=== PATIENT | male | born 1975 | race Caucasian/White ===

== ENCOUNTER 2024-04-04 13:55 | Emergency (ER) | payer OTHER, SELFPAY ==
[2024-04-04 14:01] VITALS: BP 145/75; PULSE 65; TEMP 36.6; O2SAT 98; BMI 25.1
--- NOTE | 2024-04-04 14:09 | ECG_ITS ---
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
--- NOTE | 2024-04-04 14:09 | CT_ITS ---
The [address] [address] Patient Name: LUMA LYON MRN: [id number] date: 1975 Sex: M Assigned Patient Location: ER Current Patient Location: ER Accession/Order Number: [id number] Exam Date: 04/04/2024 14:30 Report Date: 04/04/2024 15:14 At the request of: SUSAN CABRAL Procedure: CT head/brain wo con EXAM: CT head/brain wo con HISTORY: Fall COMPARISON: None. TECHNIQUE: Axial noncontrast CT imaging of the head was performed with coronal and sagittal reformats. This CT exam was performed using one or more of the following dose reduction techniques: Automated exposure control, adjustment of the MA and/or kV according to patient size, or use of iterative reconstruction technique. FINDINGS: Calvarium/skull base: No evidence of acute fracture or destructive lesion. Mastoids and middle ears demonstrate no substantial mucosal disease. Paranasal sinuses: No air fluid levels. Brain: No acute intracranial hemorrhage. No acute large vascular territory infarct. No mass lesion or mass effect. No hydrocephalus. CT/CT head/brain wo con IMPRESSION: No acute intracranial process. Electronically authenticated by: JOSE ELAINE Date: 04/04/2024 15:14
--- NOTE | 2024-04-04 14:09 | CT_ITS ---
The [address] [address] Patient Name: LUMA LYON MRN: [id number] date: 1975 Sex: M Assigned Patient Location: ER Current Patient Location: ER Accession/Order Number: [id number] Exam Date: 04/04/2024 14:30 Report Date: 04/04/2024 15:11 At the request of: SUSAN CABRAL Procedure: CT cervical spine wo con PROCEDURE: CT cervical spine wo con COMPARISON: None. HISTORY: Fall, left arm numbness TECHNIQUE: Axial, Coronal, and Sagittal CT images obtained without IV contrast. Dose reduction techniques were achieved by using automated exposure control and/or adjustment of mA and/or kV according to patient size and/or use of iterative reconstruction technique. FINDINGS: PARASPINAL AREA: Normal with no visible mass. DISCS: Moderate narrowing C5-C6 with endplate sclerosis. Right C5-C6 foraminal stenosis BONES: Normal alignment with no acute fracture or spondylolisthesis. Degenerative spondylosis and facet osteoarthropathy most significant C5-C6 with posterior osteophyte formation OTHER: Negative. CT/CT cervical spine wo con IMPRESSION: No acute traumatic fracture Moderate degenerative changes C5-C6 with right foraminal stenosis Electronically authenticated by: ENOC ODONNELL Date: 04/04/2024 15:11
--- NOTE | 2024-04-04 14:09 | XR_ITS ---
The [address] [address] Patient Name: LUMA LYON MRN: [id number] date: 1975 Sex: M Assigned Patient Location: ER Current Patient Location: ER Accession/Order Number: [id number] Exam Date: 04/04/2024 14:30 Report Date: 04/04/2024 15:02 At the request of: SUSAN CABRAL Procedure: XR elbow LT min 3V PROCEDURE: XR elbow LT min 3V COMPARISON: None. HISTORY: fall FINDINGS: BONES:No fracture, acute abnormality, or significant arthropathy. Minimal enthesopathic spurring of the olecranon process of the triceps insertion SOFT TISSUES:Negative. No visible soft tissue swelling. EFFUSION:None visible. OTHER: Negative. XR/XR elbow LT min 3V IMPRESSION: No acute fracture Electronically authenticated by: ENOC ODONNELL Date: 04/04/2024 15:02
--- NOTE | 2024-04-04 14:12 | CT_ITS ---
[address] [address] Patient Name: LUMA LYON MRN: [id number] date: 1975 Sex: M Assigned Patient Location: ER Current Patient Location: ER Accession/Order Number: [id number] Exam Date: 04/04/2024 14:30 Report Date: 04/04/2024 15:07 At the request of: SUSAN CABRAL Procedure: CT chest w con EXAMINATION: CT chest w con HISTORY: Fall, left chest pain COMPARISON: No relevant comparison available. TECHNIQUE: Multi-planar CT images were created with IV contrast. Axial, Coronal, and Sagittal images. Dose reduction techniques were achieved by using automated exposure control and/or adjustment of mA and/or kV according to patient size and/or use of iterative reconstruction technique. FINDINGS: LUNGS: Minimal bibasilar linear opacities likely representing atelectasis. No focal consolidation or pulmonary mass PLEURA: No mass, effusion, or pneumothorax. VASCULATURE: No abnormality. VERONICA: No mass or adenopathy. MEDIASTINUM: No mass or adenopathy. CARDIAC: No enlargement or pericardial effusion Coronary atherosclerosis: Mild AORTA: No aortic aneurysm or dissection. Minimal calcific atherosclerosis CHEST WALL: No mass or axillary adenopathy. BONES: No bone lesion or fracture. Exaggerated thoracic kyphosis with mild degenerative spondylosis LIMITED ABDOMEN: No suspicious findings. Limited images of the upper abdomen. OTHER: Negative. CT/CT chest w con IMPRESSION: No acute traumatic abnormality Electronically authenticated by: ENOC ODONNELL Date: 04/04/2024 15:07
--- NOTE | 2024-04-04 14:12 | ED.GENADUL1 ---
HPI HPI - General Adult General Chief complaint: Fall Stated complaint: UPPER EXTREMITY INJURY Time Seen by Provider: 04/04/24 13:57 Source: patient Mode of arrival: walk-in Limitations: no limitations History of Present Illness HPI narrative: Patient is a 49-year-old male who presents to the emergency department with complaint of left hand numbness and left chest wall pain after a fall off a roof 1 week ago. He states the symptoms have been present since he fell off the roof. He states he landed on his left side. He sustained abrasions to his left elbow. He complains of some continued pain at the left elbow. He states his left hand is numb and he is having difficulty using his left hand although he just came from work and was able to work today. He states he went to [facility] last night but was not happy with his care because they could not answer the question . When asked what the patient's expectations are, he states No one told me why my left hand is numb . He states he believes he had a chest x-ray last night at [facility] in the emergency department. He arrives ambulatory, holding a can of Pepsi in his right hand. He denies neck pain, back pain. No issues with the right upper extremity. Pain is in the left chest wall under the left nipple. Related Data Home Medications ?Medication ?Instructions ?Recorded ?Confirmed ondansetron HCl 4 mg tablet 4 mg PO Q8H 04/04/24 04/04/24 pantoprazole 40 mg tablet,delayed 40 mg PO DAILY 04/04/24 04/04/24 release Previous Rx's ?Medication ?Instructions ?Recorded methocarbamol 750 mg tablet 750 mg PO TID PRN pain #20 tabs 04/04/24 methylprednisolone 4 mg tablets in See Rx Instructions .Route 04/04/24 a dose pack (Medrol (Jesus)) .COMPLEX #21 ea Allergies Allergy/AdvReac Type Severity Reaction Status Date / Time acetaminophen Allergy Severe Hives Verified 04/04/24 14:00 [From Darvocet-N] bee venom protein (honey bee) Allergy Severe Hives Verified 04/04/24 14:00 propoxyphene Allergy Severe Hives Verified 04/04/24 14:00 [From Darvocet-N] Opioid HPI Opioid Management Most Recent Opioid Data: Last Pain Scale 8 04/04/24 14:35 Review of Systems ROS Constitutional Denies: fever or chills Eyes Denies: change in vision Cardiovascular Reports: chest pain Respiratory Denies: shortness of breath or cough Gastrointestinal Denies: abdominal pain, nausea or vomiting Musculoskeletal Reports: extremity pain; Denies: back pain or neck pain Integumentary/Breast Denies: rash Neurological Reports: numbness in extremities and weakness in extremities; Denies: headache or dizziness Hematologic/Lymphatic Denies: easy bruising or easy bleeding Exam Narrative Exam Narrative: Gen.: Awake, alert, in no distress Head: Normocephalic, atraumatic ENT: Moist mucous membranes, Cervical spine nontender Respiratory: No respiratory distress, lungs clear bilaterally; Minimal tenderness of the left anterior chest wall inferior to the nipple Cardio: Regular rate and rhythm Extremities: 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 Normal biceps tendon strength bilaterally in the upper extremities. Diffuse mild tenderness with abrasions that are healing to the left posterior elbow and olecranon. Patient is noted to be moving his extremities up above his head at the shoulders with no difficulty. No lower extremity injuries, well-healing abrasion to the left anterior knee. Psych: Normal mood and affect Neuro: No focal neuro deficit Skin: Warm, dry, intact Constitutional Vital Signs, click to edit/add: Last Vital Signs Temp 98 F 04/04/24 14:01 Pulse 65 04/04/24 14:01 Resp 20 04/04/24 14:01 BP 145/75 H 04/04/24 14:01 Pulse Ox 98 04/04/24 14:01 O2 Del Method Room Air 04/04/24 14:01 Course Vital Signs Vital signs: Vital Signs Temperature 98 F 04/04/24 14:01 Pulse Rate 65 04/04/24 14:01 Respiratory Rate 20 04/04/24 14:01 Blood Pressure 145/75 H 04/04/24 14:01 Pulse Oximetry 98 04/04/24 14:01 Oxygen Delivery Method Room Air 04/04/24 14:01 Temperature 98 F 04/04/24 14:01 Pulse Rate 65 04/04/24 14:01 Respiratory Rate 20 04/04/24 14:01 Blood Pressure 145/75 H 04/04/24 14:01 Pulse Oximetry 98 04/04/24 14:01 Oxygen Delivery Method Room Air 04/04/24 14:01 Medical Decision Making MDM Narrative Medical decision making narrative: I obtained records from [facility] from the patient's visit yesterday showing that he reported to the ER staff left chest wall pain radiating into the left arm associated with 3 days of cough and congestion. He received a cardiac workup and was discharged with medication for bronchitis. At no point in their ER documentation does it state that the patient reported a fall a week ago, left hand numbness or other associated injuries. CT of the brain, C-spine, chest and x-ray of the left elbow were obtained. Patient has a normal EKG, normal labs including troponin. CT of the cervical spine shows some moderate degenerative changes and C5/C6 foraminal stenosis. Patient is in no distress on reevaluation by attending physician. He was asked by nursing staff if he has been taking the medications that were prescribed to him at [facility] last night, patient states that he did not start any of the medications because he was not seen by a doctor. Records show that he was seen by a physician clinical services assistant. He states that he did not believe any of the workup that he received last night because he was not seen by a doctor. Patient was reevaluated by Dr. Abreu and given his results. He is discharged with a Medrol Dosepak and Robaxin. Follow-up with primary care provider for an MRI as indicated and return to the ER if symptoms change or worsen Medical Records Medical records reviewed: Yes I reviewed the patient's medical records Lab Data Lab results reviewed: Yes I reviewed the patient's lab results Labs: Lab Results 04/04/24 Range/Units 14:17 WBC 8.7 (4.0-11.0) 10^3/uL RBC 3.85 L (4.70-6.10) 10^6/uL Hgb 12.7 L (14.0-18.0) g/dL Hct 37.8 L (42.0-54.0) % MCV 98.2 H (80.0-94.0) fL MCH 33.0 (25.9-34.0) pg MCHC 33.6 (29.9-35.2) g/dL RDW 11.7 (11.0-15.0) % Plt Count 232 (150-450) 10^3/uL MPV 10.8 (9.5-13.5) fL Neut % (Auto) 64.8 (43.0-75.0) % Lymph % (Auto) 23.1 (20.5-60.0) % Harvey % (Auto) 7.0 (1.7-12.0) % Eos % (Auto) 4.0 (0.9-7.0) % Baso % (Auto) 0.8 (0.2-2.0) % Neut # (Auto) 5.6 (1.4-6.5) 10^3/uL Lymph # (Auto) 2.0 (1.2-3.8) 10^3/uL Harvey # (Auto) 0.6 (0.3-0.8) 10^3/uL Eos # (Auto) 0.4 (0.0-0.7) 10^3/uL Baso # (Auto) 0.1 (0.0-0.1) 10^3/uL Abs Immat Gran (auto) 0.03 (0.00-0.03) 10^3/uL Imm/Tot Granulo (auto) 0.3 (0.0-0.5) % Sodium 139 (136-145) mmol/L Potassium 4.2 (3.5-5.1) mmol/L Chloride 103 (98-107) mmol/L Carbon Dioxide 26.6 (21.0-32.0) mmol/L Anion Gap 13.6 BUN 8.0 (7.0-18.0) mg/dL Creatinine 0.97 (0.70-1.30) mg/dL Est GFR ( Amer) >60 (>=60) Est GFR (Non-Af Amer) >60 (>=60) BUN/Creatinine Ratio 8.2 Glucose 157 H (74-106) mg/dL Calcium 9.4 (8.5-10.1) mg/dL Total Bilirubin 0.3 (0.2-1.0) mg/dL AST 19 (15-37) U/L ALT 23 (16-63) U/L Alkaline Phosphatase 91 (46-116) U/L Total Creatine Kinase 158 (39-308) U/L Troponin I High Sens 5.0 (4.0-76.1) pg/mL Total Protein 7.0 (6.4-8.2) g/dL Albumin 3.3 L (3.4-5.0) g/dL Globulin 3.7 g/dL Albumin/Globulin Ratio 0.[address] scan - head: Attestation: I have reviewed the pertinent imaging results. Radiologist's impression: ITS Impressions Cervical Spine CT 04/04/24 14:09 IMPRESSION: No acute traumatic fracture Moderate degenerative changes C5-C6 with right foraminal stenosis Electronically authenticated by: ENOC ODONNELL Date: 04/04/2024 15:11 Elbow X-Ray 04/04/24 14:09 IMPRESSION: No acute fracture Electronically authenticated by: ENOC ODONNELL Date: 04/04/2024 15:[address] 04/04/24 14:09 IMPRESSION: No acute intracranial process. Electronically authenticated by: JOSE ELAINE Date: 04/04/2024 15:[address] 04/04/24 14:12 IMPRESSION: No acute traumatic abnormality Electronically authenticated by: ENOC ODONNELL Date: 04/04/2024 15:07 ECG Data Attestation: I personally reviewed and interpreted this ECG as follows: (Normal sinus rhythm at a rate of 61, no acute ST elevation or ectopy. EKG reviewed by attending physician) Discharge Plan Discharge Stand Alone Forms: Portal Instructions Chief Complaint: Fall Clinical Impression: Acute chest wall pain, Left hand paresthesia, Fall Patient Disposition: Home, Self-Care Time of Disposition Decision: 15:21 Condition: Good Prescriptions / Home Meds: New methocarbamol 750 mg tablet 750 mg PO TID PRN (Reason: pain) Qty: 20 0RF methylprednisolone [Medrol (Jesus)] 4 mg tablets,dose pack See Rx Instructions .ROUTE .COMPLEX Qty: 21 0RF Rx Instructions: Taper as directed No Action pantoprazole 40 mg tablet,delayed release (DR/EC) 40 mg PO DAILY ondansetron HCl 4 mg tablet 4 mg PO Q8H Print Language: Kyrgyz Instructions: Paresthesia (ED), Chest Wall Pain (ED) Referrals: Physician,Non-Staff, MD [Primary Care Provider] - 1 week
[2024-04-04 14:27] LABS: Basophils Absolute Auto 0.1 10^3/uL (0.0-0.1); Basophils Percent Auto 0.8 % (0.2-2.0); Eosinophils Absolute Auto 0.4 10^3/uL (0.0-0.7); Hematocrit 37.8 % (42.0-54.0); Hemoglobin 12.7 g/dL (14.0-18.0); Immature Granulocytes Abs Auto 0.03 10^3/uL (0.00-0.03); Immature Granulocytes Pct Auto 0.3 % (0.0-0.5); Lymphocytes Percent Auto 23.1 % (20.5-60.0); Mean Corpuscular HGB Conc 33.6 g/dL (29.9-35.2); Mean Corpuscular Volume 98.2 fL (80.0-94.0); Mean Platelet Volume 10.8 fL (9.5-13.5); Monocytes Absolute Auto 0.6 10^3/uL (0.3-0.8); Neutrophils Absolute Auto 5.6 10^3/uL (1.4-6.5); Neutrophils Percent Auto 64.8 % (43.0-75.0); Platelet Count 232 10^3/uL (150-450); Red Blood Count 3.85 10^6/uL (4.70-6.10); Red Cell Distribution Width 11.7 % (11.0-15.0); White Blood Count 8.7 10^3/uL (4.0-11.0)
[2024-04-04 14:49] LABS: Alanine Aminotransferase 23 U/L (16-63); Albumin Globulin Ratio 0.9; Albumin Level 3.3 g/dL (3.4-5.0); Alkaline Phosphatase 91 U/L (46-116); Anion Gap 13.6; Aspartate Amino Transferase 19 U/L (15-37); BUN Creatinine Ratio 8.2; Bilirubin Total 0.3 mg/dL (0.2-1.0); Calcium 9.4 mg/dL (8.5-10.1); Carbon Dioxide 26.6 mmol/L (21.0-32.0); Chloride 103 mmol/L (98-107); Creatine Kinase 158 U/L (39-308); Estimated GFR (African America >60 (>=60); Estimated GFR (Non-African Ame >60 (>=60); Globulin 3.7 g/dL; Glucose 157 mg/dL (74-106); Potassium 4.2 mmol/L (3.5-5.1); Sodium 139 mmol/L (136-145)
[2024-04-04] MEDS: 0.9 % SODIUM CHLORIDE 1,000 ML 999 ML IV (14:54)
[2024-04-04 15:28] VITALS: PULSE 74; O2SAT 98
== END 2024-04-04 15:29 | disposition home or self-care (01) ==
PROVIDERS: Physician Assistant; Emergency Provider Emergency Medicine
DX: R07.89 Other chest pain (principal); R20.2 Paresthesia of skin; W13.2XXA Fall from, out of or through roof, initial encounter
CPT/HCPCS: 36415; 70450; 71260; 72125; 73080; 80053; 82550; 84484; 85025; 93005; 99285; Q9967